=== PATIENT | male | born 1970 | race Hispanic/Latino ===

== ENCOUNTER → 2024-07-25 | Outpatient (CLI) | payer OTHER ==
[~2024-07-25] MED LIST: CETI10TA57 PO; CYCL-309 PO; FLUT16H NASAL; IOHEXOL 350 MG/ML 100ML INFUS..BTL IV ONE; METOPROLOL TARTRATE 1 MG/ML 5ML VIAL IV ONE; TRAM50TA4 PO
== END | disposition home or self-care (01) ==
LOC: RAH 09:41
PROVIDERS: ATTEND Internal Medicine Cardiovascular Disease
DX: R07.9 Chest pain, unspecified (principal); M47.815 Spondylosis without myelopathy or radiculopathy, thoracolumbar region
CPT/HCPCS: 75574; J3490; Q9967 ×2